=== PATIENT | male | born 1990 | race Caucasian/White ===

== ENCOUNTER 2022-12-02 10:04 | Emergency (ER) | payer SELFPAY ==
[~2022-12-02] VITALS: Ht 167.6 cm; Wt 59.0 kg
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
[2022-12-02 10:05] VITALS: BP_SYST 140
--- NOTE | 2022-12-02 10:21 | NUR ---
DR NAVARRO AT BEDSIDE FOR EVALUATION
--- NOTE | 2022-12-02 10:35 | NUR ---
Patient given written and verbal discharge instructions and verbalizes understanding. ER MD discussed with patient the results and treatment provided. Patient in stable condition. ID arm band removed. Rx of NONE given. Patient educated on pain management and to follow up with PMD. Pain Scale 0/10. Opportunity for questions provided and answered. Medication side effect fact sheet provided.
== END 2022-12-02 10:35 ==
LOC: SED 10:04
DX: Z02.89 Encounter for other administrative examinations (principal); M54.50 Low back pain, unspecified; E86.0 Dehydration; I10 Essential (primary) hypertension; Z79.899 Other long term (current) drug therapy
CPT/HCPCS: 99283